=== PATIENT | male | born 1985 | race Caucasian/White ===

== ENCOUNTER 2016-12-22 22:34 | Emergency (ER) | payer OTHER ==
[~2016-12-22] VITALS: Ht 182.9 cm; Wt 95.9 kg
[~2016-12-22 22:34] MED LIST: TAMS0.4C98 PO
--- NOTE | 2016-12-22 22:38 | ED.REPORT ---
HPI-General Illness Date of Service Dec 22, 2016 ED Provider: Dr. 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 Patient reports that he has felt similar pain to his left flank during his previous encounters with kidney stones. He states that he also feels dehydrated. Patient was seen in the ED on 11/02 for left ureterolithiasis. He denies any other medical complaints at this time. Nursing Notes Stated Complaint: R FLANK PAIN Nursing Notes Reviewed: Yes Allergies: Coded Allergies: No Known Allergies (Unverified , 06/19/16) Scheduled Tamsulosin (Flomax) 0.4 Mg Capsule 0.4 MG PO DAILY General Time Seen by MD: 22:38 Chief Complaint Other (Right flank pain) Hx Obtained From: Patient Arrived By: Ambulance Sudden in Onset?: Yes Onset Occurred: Just prior to arrival Symptom Duration: Since onset Location: : Back (Right flank ) Quality: Painful Radiation: : Does not radiate Severity: Current: Moderate Severity: Maximum: Moderate Additional Notes: Pt reports that he feels dehydrated Pertinent Negative: Pt denies other symptoms Recent Healthcare: No recent doctor visit, Recent hospitalization Past Medical History Past Medical History PTSD 3rd degree heart block with syncope s/p pacemaker placement Nephrolithiasis Syncope Past Surgical History Pacemaker placement 09/2016 Smoking History Unknown if Ever Smoker Social History Alcohol Use: Denies alcohol use Drug Use: THC Ambulatory Status Independent Review of Systems Right flank pain Full Review of Systems Constitutional: Reports: Chills, Denies: Fever Respiratory: Denies: Shortness of breath Cardiovascular: Denies: Chest pain GI: Denies: Nausea, Vomiting Neurologic: Denies: Change LOC Complete sys rev & neg: except as marked. Physical Exam Vital Signs Vital Signs Date Time Temp Pulse Resp B/P Pulse Ox O2 Delivery O2 Flow Rate FiO2 12/23/16 02:41 66 16 110/64 95 Room Air 12/23/16 00:16 37.7 73 19 126/65 95 Room Air 12/22/16 22:45 36.8 87 19 129/62 95 Room Air Initial VS: Reviewed Head / Eyes: Atraumatic, Normocephalic, PERRL Extremities: Vascular intact, Neuro intact, No swelling, No tenderness Skin: Warm, Dry, No cyanosis Neurologic: Alert, Oriented, Nonfocal Psychiatric: Mood/affect normal, Behavior normal, Normal thought content General/Constitutional: Awake, Alert Respiratory / Chest: Atraumatic, Breath sounds NL, Breath sounds = bilat Cardiovascular: Heart rate NL, Regular rhythm, Heart sounds NL Abdomen: Atraumatic, Soft Tenderness/Guarding/Rebound: Positive: Tender flank R Back: Atraumatic BACK: Mild right CVA tenderness Interpretation & Diagnostics Lab Results Interpretation Result Diagram: 12/22/16 2310 12/22/16 2310 Test 12/22/16 23:10 12/22/16 23:50 White Blood Count 8.8th/mm3 (3.8-10.1) Red Blood Count 4.83mil/mm3 (4.40-5.80) Hemoglobin 13.8g/dL (13.8-17.2) Hematocrit 40.2% (41.0-50.0) Mean Corpuscular Volume 83.2fL (81-100) Mean Corpuscular Hemoglobin 28.6pg (27.0-35.0) Mean Corpuscular Hemoglobin Concent 34.3% (32.0-37.0) Red Cell Distribution Width 13.4% (12.3-15.4) Platelet Count 196bil/L (150-400) Neutrophils (%) (Auto) 80.1% (40-74) Lymphocytes (%) (Auto) 12.1% (14-46) Monocytes (%) (Auto) 6.2% (4-12) Eosinophils (%) (Auto) 0.9% (0-5) Basophils (%) (Auto) 0.2% (0-3) Urine Color Dark yellow (YELLOW) Urine Appearance Clear (CLEAR,HAZY) Urine pH 6.0 (5.0-8.0) Urine Specific [place] 1.040 (1.003-1.035) Urine Protein 30mg/dL (NEG,TRACE) Urine Glucose (UA) Negativemg/dL (NEGATIVE) Urine Ketones 15mg/dL (NEGATIVE) Urine Occult Blood Trace (NEGATIVE) Urine Nitrite Negative (NEGATIVE) Urine Bilirubin Moderate (NEGATIVE) Urine Ictotest Positive (Negative) Urine Urobilinogen Normalmg/dL (NORMAL) Urine Leukocyte Esterase Negative (NEGATIVE) Urine RBC 0-2/hpf (0-2) Urine WBC 0-5/hpf (0-5) Urine Epithelial Cells Few/hpf (NONE-MOD) Urine Crystals None seen (NONE SEEN) Urine Bacteria None/hpf (NONE-FEW) Urine Hyaline Casts None/lpf (NONE) Urine Granular Casts None seen (NONE SEEN) Urine Waxy Casts None seen (NONE SEEN) Urine Red Blood Cell Casts None seen (NONE SEEN) Urine White Blood Cell Casts None seen (NONE SEEN) Urine Mucus Present (None Seen) Urine Trichomonas None seen (NONE SEEN) Urine Yeast None (NONE SEEN) Urinalysis Comment Sodium Level 137mEq/L (134-144) Potassium Level 3.3mEq/L (3.5-5.2) Chloride Level 97mEq/L (97-108) Carbon Dioxide Level 21mmol/L (18-29) Blood Urea Nitrogen 18mg/dL (6-20) Creatinine 0.89mg/dL (0.76-1.27) Estimat Glomerular Filtration Rate 105mL/min (>59) Glucose Level 99mg/dL (60-99) Calcium Level 9.5mg/dL (8.5-10.1) Total Bilirubin 0.6mg/dL (0.0-1.2) Aspartate Amino Transf (AST/SGOT) 21U/L (0-50) Alanine Aminotransferase (ALT/SGPT) 11U/L (0-44) Alkaline Phosphatase 55U/L (25-150) Total Protein 7.7g/dL (6.4-8.4) Albumin 4.5g/dL (3.4-5.0) Hold Purple Top Tube Received (Received) Hold Blue Top Tube Received (Received) Hold Red Top Tube Received (Received) Hold [place] Top Tube Received (Received) Hold Harris Top Tube Received (Received) Pulse Oximetry Interpretation Pulse Oximetry: Pulse Ox normal ECG Interpretation ECG Interpretation: Atrial paced complexes Rate 70 Time: 23:29 Interpreted by: ED physician Rhythm Strip Interpretation : Time: 00:00 Rhythm Strip Interpretation: Interpreted by me, Normal sinus rhythm X-Ray Chest Interpretation Chest Xray Interpretation: IMPRESSION: Negative for infiltrate Interpretation / Wet Read by: Wet read ED physician CT Abd / Pelvis Interpretation IMPRESSION: Normal noncontrast CT scan of the abd/pelvis Study type: Abdominal CT no contrast Re-Eval/Medical Decision Time of Eval: 02:01 Patient Status: Condition improved Re-Evaluation/Progress Note: Patient is rechecked. He reports that his symptoms have improved but admits to occassional chills. All of his questions are addressd and he agrees with the treatment plan. Counseled Regarding: Diagnosis, Lab results, Need for follow-up, When/why to return to ED Discharge & Departure Primary Impression: Abdominal pain Abdominal location: right lower quadrant Qualified Code: R10.31 - Right lower quadrant pain Additional Impression: Pneumonia Pneumonia type: due to unspecified organism Laterality: right Lung location : lower lobe of lung Qualified Code: J18.9 - Pneumonia, unspecified organism Disposition: Home Discharge Condition All VS Reviewed: Yes Condition: Stable Patient Instructions: Acute Abdominal Pain (ED), Bacterial Pneumonia (ED) Additional Instructions: The CT scan of your abdomen and pelvis did not show a kidney stone or any acute pathology. The CAT scan of your lungs did however show what looks like a developing pneumonia. Finish the Z-Lester. Take amoxicillin 3 times daily for 7 days. I would like you to set up a follow-up with primary care physician for next week to review the results of the tests tonight and have a follow-up evaluation. Do not drive today as you receive sedating medications. Do not hesitate to return if you have any problems or any worsening symptoms. [facility] Cece Attestation Portions of this note were transcribed by Dillon Matos. I, Dr. Hernández personally performed the history, physical exam and medical decision-making; I reviewed and confirmed the accuracy of the information in the transcribed note. Signed by: Cece Piña, 12/23/16 0300. copies to: [facility] Sanju Hernández DO Dec 22, 2016 22:38 DILLON MATOS Dec 22, 2016 23:02
[2016-12-22 22:45] VITALS: BP 129/62; PULSE 87; RESP 19; O2SAT 95
[2016-12-22] MEDS ORDERED: 0.9% Sodium Chloride 1,000 ML IV SCH (23:05)
[2016-12-22 23:57] LABS: BASOPHILS % (AUTO) 0.2 % (0-3); EOSINOPHILS % (AUTO) 0.9 % (0-5); MONOCYTES % (AUTO) 6.2 % (4-12); Mean Corpuscular Hemoglobin 28.6 pg (27.0-35.0); Mean Corpuscular Volume 83.2 fL (81-100); NEUTROPHILS % (AUTO) 80.1 % (40-74); Platelet Count 196 bil/L (150-400)
[2016-12-23 00:16] VITALS: BP 126/65; PULSE 73; RESP 19; O2SAT 95
[2016-12-23 00:40] LABS: APPEARANCE,URINE CLEAR (CLEAR,HAZY); COLOR,URINE DARK YELLOW (YELLOW); OCCULT BLOOD,URINE TRACE (NEGATIVE); UROBILINOGEN,URINE NORMAL (NORMAL)
[2016-12-23 00:41] LABS: ICTOTEST,URINE POSITIVE (Negative)
[2016-12-23 02:41] VITALS: BP 110/64; PULSE 66; RESP 16; O2SAT 95
--- NOTE | 2016-12-23 08:27 | DRSVH ---
PROCEDURE: CT KUB ([id number]) INDICATIONS: right flank and RLQ pain, TECHNIQUE: Noncontrast 5 mm thick sections acquired from the diaphragms to the symphysis. 5 mm thick coronal an d sagittal reformats were then performed. For radiation dose reduction, the following was used: aut omated exposure control, adjustment of mA and/or kV according to patient size. COMPARISON: [facility], CT, CT KUB, 11/02/2016, 5:42. FINDINGS: Image quality: Excellent. Lung bases: Patchy air space opacities are present within the superior segment of the right lower lob e in a tree in bud pattern. No pleural effusion. There is mild dependent atelectasis bilaterally. Urinary system: Both kidneys are normal in size. The bilateral renal pyramids have a radiodense appe arance suggesting medullary nephrocalcinosis. No kidney stones. No hydronephrosis or perinephric fat stranding. Both ureters appear non-dilated throughout their expected courses. Bladder wall thickne ss is normal; no calcified bladder stones. Other solid organs: Liver and spleen are normal in size. Gallbladder is mildly contracted. Pancrea s is normal in contours. No adrenal nodules. Peritoneum and bowel: Unenhanced bowel loops demonstrate normal wall thickness and caliber. The appe ndix is thin walled and gas filled. No free fluid or air. Nodes and vessels: No retroperitoneal or mesenteric adenopathy by size criteria. Aorta and inferior vena cava are normal in caliber. Abdominal wall: No ventral hernias. Pelvis: No free pelvic fluid. No inguinal hernias or adenopathy. Bones: No suspicious bony lesions. No vertebral body compression fractures. IMPRESSION: 1. No hydronephrosis, nephrolithiasis, hydroureter, or ureterolithiasis. 2. No acute intra-abdominal findings. Normal appendix. These findings are concordant with the overnight interpretation. 3. Findings suspicious for medullary nephrocalcinosis. Dictated by: Dior Maciel M.D. on 12/23/2016 at 8:21 Approved by: Dior Maciel M.D. on 12/23/2016 at 8:24
--- NOTE | 2016-12-23 09:28 | DRSVH ---
PROCEDURE: X-RAY CHEST, TWO VIEWS ([id number]) INDICATIONS: COUGH. TECHNIQUE: Two views of the chest were acquired. COMPARISON: [facility], CT, CT KUB, 12/22/2016, 23:59. FINDINGS: Surgical changes and devices: Stable position of dual chamber cardiac pacer. Lungs and pleura: No pleural effusions or pneumothorax. Right lower lobe reticulonodular densities are present; otherwise lungs are clear. Mediastinum: Mediastinal contours are normal. Heart size is normal. Bones and chest wall: No suspicious bony abnormalities. Soft tissues appear unremarkable. IMPRESSION: 1. Reticulonodular opacities involving the right lower lobe suspicious for developing aspiration or p neumonia. Recommend clinical correlation and followup. Dictated by: Andre MORAN Interpreted: Kiara Mejia MD on 12/23/2016 at 9:15 Transcribed by: CHRIS on 12/23/2016 at 12:28 Approved by: Kiara Mejia MD, PhD on 12/23/2016 at 17:24
== END 2016-12-23 02:41 | disposition home or self-care (01) ==
LOC: SED 22:34
DX: R10.31 Right lower quadrant pain (principal); J18.9 Pneumonia, unspecified organism; Z95.0 Presence of cardiac pacemaker
CPT/HCPCS: 71020; 74176; 80053; 81001; 85025; 93005; 96361; 96374; 99285; J7030